=== PATIENT | male | born 2000 | race Caucasian/White ===

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

== ENCOUNTER → 2023-12-10 | Outpatient (REF) | payer BC | LOC: M LABSMT 11:34 | PROVIDERS: ATTEND Urology | DX: Z30.2 Encounter for sterilization (principal) ==

== ENCOUNTER → 2024-04-20 | Outpatient (REF) | payer BC ==
[2024-04-20 14:56] LABS: SEMEN APPEARANCE OPAQUE (OPAQUE)
[2024-04-20 14:57] LABS: SEMEN VISCOSITY LIQUID (LIQUID); SEMEN pH 8.5 (7.0-8.0); WBC CONCENTRATION <=1 M/ml (<=1 M/ml)
== END ==
LOC: M SMT 14:07
PROVIDERS: ATTEND Urology
DX: Z30.2 Encounter for sterilization (principal)